=== PATIENT | male | born 1995 ===

== ENCOUNTER 2017-01-05 12:22 | Emergency (ER) | payer MEDICAID, OTHER ==
[2017-01-05 12:22] VITALS: BMI 22.6
[2017-01-05 12:41] VITALS: BP 135/77; PULSE 9; RESP 18; TEMP 97; O2SAT 100
--- NOTE | 2017-01-05 13:12 | ED PDOC ---
HPI: General Adult Time Seen by Provider: 01/05/17 12:45 Chief Complaint (Nursing): Abnormal Skin Integrity Chief Complaint (Provider): Rash History Per: Patient History/Exam Limitations: no limitations Onset/Duration Of Symptoms: Days (x 1) Current Symptoms Are (Timing): Still Present Additional Complaint(s): Patient is a 21 y/o male who states he woke up with mildly pruritic rash on both arms. States yesterday he was swimming on the beach, and denies applying creams or lotions. Denies fever, trauma, and history of allergic reactions. PMD: Sarah Alvarez Past Medical History Reviewed: Historical Data, Nursing Documentation, Vital Signs Vital Signs: Last Vital Signs Temp 97 F L 01/05/17 12:38 Pulse 9 L 01/05/17 12:38 Resp 18 01/05/17 12:38 BP 135/77 01/05/17 12:38 Pulse Ox 100 01/05/17 13:16 - Medical History PMH: Anxiety, Asthma, Cardia Arrhythmia, Graves' Disease, HTN, Hyperthyroidism Denies: HIV, Chronic Kidney Disease - Surgical History Surgical History: Appendectomy, Tonsillectomy - Family History Family History: States: Unknown Family Hx - Home Medications Home Medications: Ambulatory Orders Medication Instructions Recorded Methimazole [Tapazole] 30 mg PO DAILY #0 tab 09/19/15 Pantoprazole [Protonix EC Tab] 40 mg PO DAILY #0 ect 09/19/15 Propranolol [Inderal] 40 mg PO TID #0 tab 09/19/15 Ibuprofen 600 mg PO Q6H PRN #20 tab 01/27/16 Amoxicillin/Clavulanate [Augmentin 1 tab PO Q12 #14 tab 02/13/16 875 MG-125 MG] Clindamycin [Cleocin] 300 mg PO TID #30 cap 02/13/16 Azithromycin [Zithromax] 250 mg PO DAILY #4 tab 06/26/16 Triamcinolone Acetonide 0.1% 1 appl TP BID #1 tube 01/05/17 [Kenalog 0.1% CREAM] - Allergies Allergies/Adverse Reactions: Allergies Allergy/AdvReac Type Severity Reaction Status Date / Time dye Allergy Severe ANAPHYLAXIS Uncoded 02/12/16 19:43 Review of Systems ROS Statement: Except As Marked, All Systems Reviewed And Found Negative Constitutional: Negative for: Fever, Other (Trauma) Skin: Positive for: Rash (to both arms) Physical Exam - Reviewed Nursing Documentation Reviewed: Yes Vital Signs Reviewed: Yes - Physical Exam Appears: Positive for: Well, Non-toxic, No Acute Distress Skin: Positive for: Warm, Dry, Rash (Scattered erythematous plaques on bilateral arms, without vesicles or pustules. No central clearing or scaling.) Pulses-Radial (L): 2+ Pulses-Radial (R): 2+ - ECG O2 Sat by Pulse Oximetry: 100 (RA) Pulse Ox Interpretation: Normal Medical Decision Making Medical Decision Making: Time: 12:58 Clinical Impression: Contact dermatitis Upon provider evaluation patient is medically stable, and requires no further treatment in the ED at this time. Patient will be discharged with Rx for Triamcinolone acetonide 0.1% cream. Counseling was provided and all questions were answered regarding diagnosis and need for follow up with PMD. There is agreement to discharge plan. Return if symptoms persist or worsen. Scribe Attestation: Documented by Sunshine Mejia, acting as a scribe for Severino Dinh PA-C. Provider Scribe Attestation: All medical record entries made by the Scribe were at my direction and personally dictated by me. I have reviewed the chart and agree that the record accurately reflects my personal performance of the history, physical exam, medical decision making, and the department course for this patient. I have also personally directed, reviewed, and agree with the discharge instructions and disposition. Disposition - Clinical Impression Clinical Impression: Contact dermatitis - Patient ED Disposition Is Patient to be Admitted: No Doctor Will See Patient In The: Office Counseled Patient/Family Regarding: Diagnosis, Need For Followup, Rx Given - Disposition Referrals: [facility] [Outside] Disposition Time: 12:58 Condition: STABLE Prescriptions: Triamcinolone Acetonide 0.1% [Kenalog 0.1% CREAM] 1 appl TP BID #1 tube Instructions: Contact Dermatitis (ED) Forms: [facility] (Spanish), [facility] ED School/Work Excuse
== END 2017-01-05 14:11 | disposition home or self-care (01) ==
LOC: H.ER 12:22
DX: L25.9 Unspecified contact dermatitis, unspecified cause (principal); E05.00 Thyrotoxicosis with diffuse goiter without thyrotoxic crisis or storm; F41.9 Anxiety disorder, unspecified; I10 Essential (primary) hypertension; J45.909 Unspecified asthma, uncomplicated

== ENCOUNTER 2017-02-25 15:39 | Emergency (ER) | payer SELFPAY ==
[2017-02-25 15:39] VITALS: BMI 22.6
[2017-02-25 15:57] VITALS: BP 134/83; PULSE 107; RESP 16; TEMP 98.6; O2SAT 100
--- NOTE | 2017-02-25 16:36 | ED PDOC ---
HPI: CCC, URI, Sore Throat Time Seen by Provider: 02/25/17 16:27 Chief Complaint (Nursing): Cough, Cold, Congestion Chief Complaint (Provider): Cough History Per: Patient History/Exam Limitations: no limitations Onset/Duration Of Symptoms: Days (Today) Additional Complaint(s): Pt. with cough, nasal congestion. Pt. noted blood tinge phlem 2x when coughing alot. No headaches, weakness, runny nose, chest pain, dyspnea, weakness, palpitations, dizziness, nausea, vomit. Takes propranolol and methimazole for high thyroid, but ran out yesterday. No neck pain. Past Medical History Reviewed: Nursing Documentation, Vital Signs Vital Signs: Last Vital Signs Temp 98.6 F 02/25/17 15:55 Pulse 107 H 02/25/17 15:55 Resp 16 02/25/17 15:55 BP 134/83 02/25/17 15:55 Pulse Ox 100 02/25/17 15:55 - Medical History PMH: Anxiety, Asthma, Cardia Arrhythmia (svt), Graves' Disease, HTN, Hyperthyroidism Denies: HIV, Chronic Kidney Disease - Surgical History Surgical History: Appendectomy, Tonsillectomy - Family History Family History: States: Unknown Family Hx - Social History Current smoker - smoking cessation education provided: No Alcohol: None Drugs: Denies - Home Medications Home Medications: Ambulatory Orders Medication Instructions Recorded Methimazole [Tapazole] 30 mg PO DAILY #0 tab 09/19/15 Pantoprazole [Protonix EC Tab] 40 mg PO DAILY #0 ect 09/19/15 Propranolol [Inderal] 40 mg PO TID #0 tab 09/19/15 Ibuprofen 600 mg PO Q6H PRN #20 tab 01/27/16 Amoxicillin/Clavulanate [Augmentin 1 tab PO Q12 #14 tab 02/13/16 875 MG-125 MG] Clindamycin [Cleocin] 300 mg PO TID #30 cap 02/13/16 Azithromycin [Zithromax] 250 mg PO DAILY #4 tab 06/26/16 Triamcinolone Acetonide 0.1% 1 appl TP BID #1 tube 01/05/17 [Kenalog 0.1% CREAM] Benzonatate [Tessalon Perles] 100 mg PO BID PRN 5 Days sgl 02/25/17 Methimazole 20 mg PO BID 5 Days tablet 02/25/17 Propranolol [Inderal] 10 mg PO DAILY 5 Days tab 02/25/17 - Allergies Allergies/Adverse Reactions: Allergies Allergy/AdvReac Type Severity Reaction Status Date / Time dye Allergy Severe ANAPHYLAXIS Uncoded 02/25/17 15:54 Review of Systems ROS Statement: Except As Marked, All Systems Reviewed And Found Negative ENT: Positive for: Nose Congestion Respiratory: Positive for: Cough, Hemoptysis (trace blood tinge sputum) Physical Exam - Reviewed Nursing Documentation Reviewed: Yes Vital Signs Reviewed: Yes - Physical Exam Appears: Positive for: Non-toxic, No Acute Distress Head Exam: Positive for: ATRAUMATIC, NORMAL INSPECTION, NORMOCEPHALIC Skin: Positive for: Normal Color, Warm, DRY Eye Exam: Positive for: EOMI, Normal appearance, PERRL ENT: Positive for: Normal ENT Inspection, Nasal Congestion. Negative for: Pharyngeal Erythema, Tonsillar Exudate Neck: Positive for: Normal, Painless ROM, Supple Cardiovascular/Chest: Positive for: Regular Rate, Rhythm Respiratory: Positive for: CNT, Normal Breath Sounds Gastrointestinal/Abdominal: Positive for: Normal Exam, Bowel Sounds, Soft. Negative for: Tenderness Back: Positive for: Normal Inspection. Negative for: L CVA Tenderness, R CVA Tenderness Extremity: Positive for: Normal ROM. Negative for: Tenderness Neurologic/Psych: Positive for: Alert, Oriented - ECG O2 Sat by Pulse Oximetry: 100 - Progress ED Course And Treament: 1638: Pt. hr mild elevated likely from no propranolol tx. Will give accordingly and will rx script. AAOx3. Pain free. Tolerated PO. FU with pcp. Disposition - Clinical Impression Clinical Impression: URI (upper respiratory infection), Hyperthyroidism - Patient ED Disposition Is Patient to be Admitted: No Counseled Patient/Family Regarding: Diagnosis, Need For Followup, Rx Given - Disposition Referrals: [facility] [Outside] - 02/26/17 Disposition: Routine/Home Disposition Time: 16:39 Condition: STABLE Additional Instructions: Return if not better in 3 days. Prescriptions: Benzonatate [Tessalon Perles] 100 mg PO BID PRN 5 Days sgl PRN Reason: Cough Methimazole 20 mg PO BID 5 Days tablet Propranolol [Inderal] 10 mg PO DAILY 5 Days tab Instructions: Hyperthyroidism (ED), Upper Respiratory Infection (ED) Forms: [facility] (Amharic), [facility] ED School/Work Excuse
== END 2017-02-25 17:12 | disposition home or self-care (01) ==
LOC: H.ER 15:39
DX: J06.9 Acute upper respiratory infection, unspecified (principal); E05.90 Thyrotoxicosis, unspecified without thyrotoxic crisis or storm

== ENCOUNTER 2017-04-21 15:04 | Emergency (ER) | payer OTHER ==
[2017-04-21 15:05] VITALS: BMI 22.6
[2017-04-21 15:21] VITALS: BP 145/79; PULSE 95; RESP 16; TEMP 98.7; O2SAT 100
[2017-04-21] MEDS ORDERED: cefTRIAXone (Rocephin) 250 mg Inj IM ONE (15:54)
[2017-04-21] MEDS ORDERED: cefTRIAXone (Rocephin) 250 mg Inj ONE (16:22)
[2017-04-21 17:09] LABS: RBC URINE 3 /hpf (0-3); URINE BILIRUBIN NEGATIVE (NEGATIVE); URINE BLOOD NEGATIVE (NEGATIVE); URINE COLOR YELLOW (YELLOW); URINE GLUCOSE (UA) NEG (Normal); URINE KETONE TRACE mg/dL (NEGATIVE); URINE LEUKOCYTE ESTERASE NEG Leu/uL (Negative); URINE PROTEIN NEGATIVE (NEGATIVE); WBC URINE 2 /hpf (0-5)
--- NOTE | 2017-04-21 18:50 | ED PDOC ---
HPI: Male Pain Time Seen by Provider: 04/21/17 15:50 Chief Complaint (Nursing): Male Genitourinary Chief Complaint (Provider): Male Genitourinary History Per: Patient History/Exam Limitations: no limitations Onset/Duration Of Symptoms: Days (x2) Current Symptoms Are (Timing): Still Present Additional Complaint(s): Marvin Jimenez is a 21 year old male who presents to the ED complaining of penile discharge and burning urination x2 days. Patient was treated in ED for gonorrhea last week. States he told partner to be treated as well. Also states he was recently tested for HIV, Hepatitis, and other STDs. Denies other complaints at this time. PMD: Sarah Alvarez MD Past Medical History Reviewed: Historical Data, Nursing Documentation, Vital Signs Vital Signs: Last Vital Signs Temp 98.7 F 04/21/17 15:17 Pulse 95 H 04/21/17 15:17 Resp 16 04/21/17 15:17 BP 145/79 04/21/17 15:17 Pulse Ox 100 04/21/17 15:17 - Medical History PMH: Anxiety, Asthma, Cardia Arrhythmia (svt), Graves' Disease, HTN, Hyperthyroidism Denies: HIV, Chronic Kidney Disease - Surgical History Surgical History: Appendectomy, Tonsillectomy - Family History Family History: States: Unknown Family Hx - Home Medications Home Medications: Ambulatory Orders Medication Instructions Recorded Methimazole [Tapazole] 30 mg PO DAILY #0 tab 09/19/15 Pantoprazole [Protonix EC Tab] 40 mg PO DAILY #0 ect 09/19/15 Propranolol [Inderal] 40 mg PO TID #0 tab 09/19/15 Ibuprofen 600 mg PO Q6H PRN #20 tab 01/27/16 Amoxicillin/Clavulanate [Augmentin 1 tab PO Q12 #14 tab 02/13/16 875 MG-125 MG] Clindamycin [Cleocin] 300 mg PO TID #30 cap 02/13/16 Azithromycin [Zithromax] 250 mg PO DAILY #4 tab 06/26/16 Triamcinolone Acetonide 0.1% 1 appl TP BID #1 tube 01/05/17 [Kenalog 0.1% CREAM] Benzonatate [Tessalon Perles] 100 mg PO BID PRN 5 Days sgl 02/25/17 Methimazole 20 mg PO BID 5 Days tablet 02/25/17 Propranolol [Inderal] 10 mg PO DAILY 5 Days tab 02/25/17 - Allergies Allergies/Adverse Reactions: Allergies Allergy/AdvReac Type Severity Reaction Status Date / Time dye Allergy Severe ANAPHYLAXIS Uncoded 04/21/17 15:17 Review of Systems ROS Statement: Except As Marked, All Systems Reviewed And Found Negative Genitourinary Male: Positive for: Dysuria (Burning), Penile Discharge Physical Exam - Reviewed Nursing Documentation Reviewed: Yes Vital Signs Reviewed: Yes - Physical Exam Appears: Positive for: Well, Non-toxic, No Acute Distress Head Exam: Positive for: ATRAUMATIC, NORMAL INSPECTION, NORMOCEPHALIC Skin: Positive for: Normal Color. Negative for: Rash Eye Exam: Positive for: Normal appearance Male Genital Exam: Negative for: lesions, testicular tenderness (R), testicular tenderness (L) Extremity: Positive for: Normal ROM Neurologic/Psych: Positive for: Alert, Oriented - ECG O2 Sat by Pulse Oximetry: 100 (RA) Pulse Ox Interpretation: Normal Medical Decision Making Medical Decision Making: Time: 15:54 Initial Impression: STI Plan: --Chlamydia/GC RNA, TMA --Rocephin 250 mg IM --Zithromax 1,000 mg PO --Urine Culture --Urinalysis --Reevaluation Time: 17:40 --Upon provider evaluation patient is medically stable, and requires no further treatment in the ED at this time. Counseling was provided and all questions were answered regarding diagnosis and need for follow up with PMD. Patient advised to abstain from sexual activity until repeat testing with clinic. There is agreement to discharge plan. Return if symptoms persist or worsen. Scribe Attestation: Documented by Arnie Carvajal, acting as a scribe for Alejandra Reyes PA-C Provider Scribe Attestation: All medical record entries made by the Scribe were at my direction and personally dictated by me. I have reviewed the chart and agree that the record accurately reflects my personal performance of the history, physical exam, medical decision making, and the department course for this patient. I have also personally directed, reviewed, and agree with the discharge instructions and disposition. Disposition - Clinical Impression Clinical Impression: STI (sexually transmitted infection) - Patient ED Disposition Is Patient to be Admitted: No Counseled Patient/Family Regarding: Studies Performed, Diagnosis, Need For Followup - Disposition Referrals: [facility] [Outside] Disposition: Routine/Home Disposition Time: 17:40 Condition: FAIR Instructions: Sexually Transmitted Diseases (ED) Forms: [facility] (Lao)
== END 2017-04-21 19:01 | disposition home or self-care (01) ==
LOC: H.ER 15:04
DX: A64 Unspecified sexually transmitted disease (principal); J45.909 Unspecified asthma, uncomplicated; I10 Essential (primary) hypertension; E05.00 Thyrotoxicosis with diffuse goiter without thyrotoxic crisis or storm; I47.1 Supraventricular tachycardia
CPT/HCPCS: 81003; 87086; 87491; 87591; 96372; 99281; J0696

== ENCOUNTER 2017-05-01 04:54 | Emergency (ER) | payer SELFPAY ==
[2017-05-01 05:11] VITALS: BP 129/78; PULSE 109; RESP 18; TEMP 98.6; O2SAT 100; BMI 19.9
--- NOTE | 2017-05-01 05:21 | ED PDOC ---
HPI: Male Pain Time Seen by Provider: 05/01/17 05:04 Chief Complaint (Nursing): Male Genitourinary Chief Complaint (Provider): eval History Per: Patient History/Exam Limitations: no limitations Onset/Duration Of Symptoms: Days Current Symptoms Are (Timing): Still Present Additional History Per: Patient Additional Complaint(s): 21 y/o male presents for evaluation of possible STD. Patient states he was in ED beginning of this month and tested positive for gonorrhea and both him and his partner were treated. Patient came back to ED again 04/21, stating him and his partner waited 9 days after treatment before heaving intercourse again, and when they did the condom broke, so he was prophylactically treated again at that time. Patient returns to ED tonight, stating he and his partner waited another 9 days and then tonight while having intercourse the condom broke again , and he noticed since then, while urinating he feels as if he can't "get the last bit out". Denies fever, nausea/vomiting, penile pain/discharge, testicular pain/swelling. Past Medical History Reviewed: Historical Data, Nursing Documentation, Vital Signs Vital Signs: Last Vital Signs Temp 98.6 F 05/01/17 05:07 Pulse 109 H 05/01/17 05:07 Resp 18 05/01/17 05:07 BP 129/78 05/01/17 05:07 Pulse Ox 100 05/01/17 05:07 - Medical History PMH: Anxiety, Asthma, Cardia Arrhythmia (svt), Graves' Disease, HTN, Hyperthyroidism Denies: HIV, Chronic Kidney Disease - Surgical History Surgical History: Appendectomy, Tonsillectomy - Family History Family History: States: Unknown Family Hx - Home Medications Home Medications: Ambulatory Orders Medication Instructions Recorded Methimazole [Tapazole] 30 mg PO DAILY #0 tab 09/19/15 Pantoprazole [Protonix EC Tab] 40 mg PO DAILY #0 ect 09/19/15 Propranolol [Inderal] 40 mg PO TID #0 tab 09/19/15 Ibuprofen 600 mg PO Q6H PRN #20 tab 01/27/16 Amoxicillin/Clavulanate [Augmentin 1 tab PO Q12 #14 tab 02/13/16 875 MG-125 MG] Clindamycin [Cleocin] 300 mg PO TID #30 cap 02/13/16 Azithromycin [Zithromax] 250 mg PO DAILY #4 tab 06/26/16 Triamcinolone Acetonide 0.1% 1 appl TP BID #1 tube 01/05/17 [Kenalog 0.1% CREAM] Benzonatate [Tessalon Perles] 100 mg PO BID PRN 5 Days sgl 02/25/17 Methimazole 20 mg PO BID 5 Days tablet 02/25/17 Propranolol [Inderal] 10 mg PO DAILY 5 Days tab 02/25/17 - Allergies Allergies/Adverse Reactions: Allergies Allergy/AdvReac Type Severity Reaction Status Date / Time dye Allergy Severe ANAPHYLAXIS Uncoded 05/01/17 05:06 Review of Systems ROS Statement: Except As Marked, All Systems Reviewed And Found Negative Genitourinary Male: Positive for: Frequency Physical Exam - Reviewed Nursing Documentation Reviewed: Yes Vital Signs Reviewed: Yes - Physical Exam Appears: Positive for: Well, Non-toxic, Uncomfortable (anxious) Head Exam: Positive for: ATRAUMATIC, NORMAL INSPECTION, NORMOCEPHALIC Skin: Positive for: Normal Color Eye Exam: Positive for: Normal appearance ENT: Positive for: Normal ENT Inspection Cardiovascular/Chest: Positive for: Regular Rate, Rhythm Respiratory: Positive for: Normal Breath Sounds Gastrointestinal/Abdominal: Positive for: Normal Exam Male Genital Exam: Positive for: normal genitalia, 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 Negative for: lesions, scrotum tenderness (R), scrotum tenderness (L), testicular tenderness (R), testicular tenderness (L), urethral discharge Back: Positive for: Normal Inspection Extremity: Positive for: Normal ROM Neurologic/Psych: Positive for: Alert, Oriented - ECG O2 Sat by Pulse Oximetry: 100 - Progress ED Course And Treament: Patient educated on negative GC/Chlamydia testing from 04/21/17 visit; advised very low risk to have contracted STD again given circumstances. Patient agreeable to wait for testing before being treated, as this would be the third treatment this month. Patient was advised to follow up with a primary doctor. Return to ED for worsening/concerning symptoms Disposition - Clinical Impression Clinical Impression: Concern about STD in male without diagnosis - Patient ED Disposition Is Patient to be Admitted: No Counseled Patient/Family Regarding: Studies Performed, Diagnosis, Need For Followup - Disposition Disposition: Routine/Home Disposition Time: 05:56 Condition: GOOD Instructions: Safe Sex (ED)
[2017-05-01 05:41] LABS: RBC URINE 2 /hpf (0-3); URINE BILIRUBIN NEGATIVE (NEGATIVE); URINE BLOOD NEGATIVE (NEGATIVE); URINE COLOR YELLOW (YELLOW); URINE GLUCOSE (UA) NEG (Normal); URINE KETONE NEGATIVE (NEGATIVE); URINE LEUKOCYTE ESTERASE NEG Leu/uL (Negative); URINE PROTEIN NEGATIVE (NEGATIVE); WBC URINE 5 /hpf (0-5)
== END 2017-05-01 06:08 | disposition home or self-care (01) ==
LOC: H.ER 04:54
DX: Z11.3 Encounter for screening for infections with a predominantly sexual mode of transmission (principal); E05.00 Thyrotoxicosis with diffuse goiter without thyrotoxic crisis or storm; F41.9 Anxiety disorder, unspecified; I10 Essential (primary) hypertension; I47.1 Supraventricular tachycardia; J45.909 Unspecified asthma, uncomplicated

== ENCOUNTER 2018-09-10 19:24 | Emergency (ER) | payer SELFPAY ==
[2018-09-10 19:24] VITALS: BMI 22.6
[2018-09-10 19:29] VITALS: O2SAT 100
[2018-09-10] MEDS ORDERED: Sodium Chloride 0.9% 1,000 ML IV STA (20:12)
--- NOTE | 2018-09-10 20:13 | ED PDOC ---
HPI: Abdomen Time Seen by Provider: 09/10/18 20:08 Chief Complaint (Nursing): Abdominal Pain Chief Complaint (Provider): Abdominal Pain History Per: Patient History/Exam Limitations: no limitations Onset/Duration Of Symptoms: Days (x3), Intermittent Episodes Current Symptoms Are (Timing): Still Present Additional Complaint(s): 23 year old male presents to the emergency department with a complaint of upper, abdominal pain occurring intermittently with eating and drinking for 3 days. Patient has not taken any medications for relief nor compliant with her thyroid medication. Otherwise, she denies nausea, vomiting, diarrhea, lower abdominal pain, back pain, chest pain, or urinary symptoms. PCP: none provided Past Medical History Reviewed: Historical Data, Nursing Documentation, Vital Signs Vital Signs: Last Vital Signs Temp 97.9 F 09/10/18 19:26 Pulse 123 H 09/10/18 19:26 Resp 17 09/10/18 19:26 BP 135/87 09/10/18 19:26 Pulse Ox 100 09/10/18 19:26 - Medical History PMH: Denies: HIV, Chronic Kidney Disease - Surgical History Surgical History: Appendectomy, Tonsillectomy - Family History Family History: States: Unknown Family Hx - Social History Current smoker - smoking cessation education provided: No Alcohol: None Drugs: Cannabis - Home Medications Home Medications: Ambulatory Orders Medication Instructions Recorded Methimazole [Tapazole] 30 mg PO DAILY #0 tab 09/19/15 Pantoprazole [Protonix EC Tab] 40 mg PO DAILY #0 ect 09/19/15 Propranolol [Inderal] 40 mg PO TID #0 tab 09/19/15 Ibuprofen 600 mg PO Q6H PRN #20 tab 01/27/16 Amoxicillin/Clavulanate [Augmentin 1 tab PO Q12 #14 tab 02/13/16 875 MG-125 MG] Clindamycin [Cleocin] 300 mg PO TID #30 cap 02/13/16 Azithromycin [Zithromax] 250 mg PO DAILY #4 tab 06/26/16 Triamcinolone Acetonide 0.1% 1 appl TP BID #1 tube 01/05/17 [Kenalog 0.1% CREAM] Benzonatate [Tessalon Perles] 100 mg PO BID PRN 5 Days sgl 02/25/17 Methimazole 20 mg PO BID 5 Days tablet 02/25/17 Propranolol [Inderal] 10 mg PO DAILY 5 Days tab 02/25/17 Famotidine [Pepcid] 20 mg PO DAILY PRN #6 tab 09/10/18 - Allergies Allergies/Adverse Reactions: Allergies Allergy/AdvReac Type Severity Reaction Status Date / Time dye Allergy Severe ANAPHYLAXIS Uncoded 05/01/17 05:06 Review of Systems ROS Statement: Except As Marked, All Systems Reviewed And Found Negative Cardiovascular: Negative for: Chest Pain Gastrointestinal: Positive for: Abdominal Pain (upper). Negative for: Nausea, Vomiting, Diarrhea Genitourinary Male: Negative for: Dysuria, Hematuria Musculoskeletal: Negative for: Back Pain Physical Exam - Reviewed Nursing Documentation Reviewed: Yes Vital Signs Reviewed: Yes - Physical Exam Appears: Positive for: No Acute Distress Head Exam: Positive for: ATRAUMATIC, NORMAL INSPECTION, NORMOCEPHALIC Skin: Positive for: Normal Color Eye Exam: Positive for: Normal appearance ENT: Positive for: Normal ENT Inspection. Negative for: Pharyngeal Erythema Neck: Positive for: Normal Cardiovascular/Chest: Positive for: Regular Rate, Rhythm Respiratory: Positive for: Normal Breath Sounds. Negative for: Respiratory Distress Gastrointestinal/Abdominal: Positive for: Soft, Tenderness (mild epigastric) Back: Positive for: Normal Inspection. Negative for: L CVA Tenderness, R CVA Tenderness Extremity: Positive for: Normal ROM (upper/lower) Neurological/Psych: Positive for: Awake, Alert, Oriented - Laboratory Results Result Diagrams: 09/10/18 22:28 09/10/18 22:28 Lab Results: cannabis positive - ECG O2 Sat by Pulse Oximetry: 100 (RA) Pulse Ox Interpretation: Normal - Progress ED Course And Treament: 2324: Stable. AAOx3. Pain free. Walking around. Tolerated PO. Fu with pcp. Medical Decision Making Medical Decision Making: Time: 2007 Initial Plan: * Labs * IV fluids * Pepcid IVP Scribe Attestation: Documented by Natalie Nash, acting as a scribe for Luciano Bender MD. Provider Scribe Attestation: All medical record entries made by the Scribe were at my direction and personally dictated by me. I have reviewed the chart and agree that the record accurately reflects my personal performance of the history, physical exam, medical decision making, and the department course for this patient. I have also personally directed, reviewed, and agree with the discharge instructions and disposition. Disposition - Clinical Impression Clinical Impression: Abdominal discomfort - Patient ED Disposition Is Patient to be Admitted: No Counseled Patient/Family Regarding: Studies Performed, Diagnosis, Need For Fol lowup, Rx Given - Disposition Referrals: [facility] [Outside] - 09/13/18 Disposition: Routine/Home Disposition Time: 23:30 Condition: STABLE Additional Instructions: Return if not better in 3 days. Prescriptions: Famotidine [Pepcid] 20 mg PO DAILY PRN #6 tab PRN Reason: Pain Instructions: Stomach Ache and Stomach Upset Forms: [employer] ED School/Work Excuse
[2018-09-10 22:31] LABS: BASO % 0.4 % (0.0-2.0); EOS # 0.2 K/uL (0.0-0.7); EOS % 1.4 % (0.0-4.0); HEMOGLOBIN 15.4 g/dL (12.0-18.0); LYMPH % 24.8 % (20.0-40.0); MEAN CELL VOLUME 78.5 fl (80.0-94.0); MEAN CORPUSCULAR HEMOGLOBIN 26.6 pg (27.0-31.0); MEAN CORPUSCULAR HGB CONC 33.9 g/dL (33.0-37.0); MEAN PLATELET VOLUME 7.6 fl (7.2-11.7); MONO % 7.8 % (0.0-10.0); NEUT % 65.6 % (50.0-75.0); NRBC % 0.1 % (0.0-0.0); RBC 5.78 Mil/uL (4.40-5.90); RED CELL DISTRIBUTION WIDTH 12.4 % (11.5-14.5); WHITE BLOOD COUNT 12.2 K/uL (4.8-10.8)
[2018-09-10 22:41] LABS: ALB/GLOB RATIO 1.4 (1.0-2.1); ALBUMIN 4.8 g/dL (3.5-5.0); ALT/SGPT 49 U/L (21-72); AST/SGOT 28 U/L (17-59); BLOOD UREA NITROGEN 15 mg/dl (9-20); CALCIUM 9.8 mg/dL (8.4-10.2); GFR NON-AFRICAN AMERICAN > 60; LIPASE 129 U/L (23-300)
[2018-09-10 22:49] LABS: BARBITURATES, UR NEGATIVE (NEGATIVE); BENZODIAZEPINES, UR NEGATIVE (NEGATIVE); OPIATES, UR NEGATIVE (NEGATIVE); PHENCYCLIDINE, UR NEGATIVE (NEGATIVE)
[2018-09-11 03:56] VITALS: BP 124/81; PULSE 96; RESP 18; TEMP 98.2
== END 2018-09-11 00:05 | disposition home or self-care (01) ==
LOC: H.ER 19:24
DX: R10.9 Unspecified abdominal pain (principal)
CPT/HCPCS: 80053; 83690; 85025; 96374; 99283; G0480; J7030